=== PATIENT | female | born 1985 | race Caucasian/White ===

== ENCOUNTER 2019-06-24 11:43 | Emergency (ER) | payer BC ==
[~2019-06-24] VITALS: Ht 167.6 cm; Wt 86.6 kg
[2019-06-24 11:53] VITALS: Ht 167.6 cm; Wt 86.6 kg
[2019-06-24 13:37] VITALS: BP 115/74
== END 2019-06-24 13:37 | disposition home or self-care (01) ==
LOC: ED 11:43
DX: R05 Cough (principal); J02.9 Acute pharyngitis, unspecified; M79.10 Myalgia, unspecified site; R50.9 Fever, unspecified; J34.89 Other specified disorders of nose and nasal sinuses; E03.9 Hypothyroidism, unspecified; Z03.818 Encounter for observation for suspected exposure to other biological agents ruled out; Z90.89 Acquired absence of other organs; Z88.0 Allergy status to penicillin; Z91.040 Latex allergy status
CPT/HCPCS: 87804; Q0092